=== PATIENT | male | born 1965 | race Caucasian/White ===

== ENCOUNTER 2018-09-06 15:17 | Emergency (ER) | payer BC, OTHER ==
[~2018-09-06] VITALS: Ht 180.3 cm; Wt 80.0 kg
[2018-09-06] MEDS ORDERED: CefTRIAXone 2gm/D5W 50ml 50 ML IV ONE ×2 (16:40→17:15)
[2018-09-06] MEDS ORDERED: piperacillin/tazo 3.375gm/50ml 50 ML IV ONE (16:40)
[2018-09-06] MEDS ORDERED: morphine 4 MG/ML inj SYRINge IV ONE (16:40)
[2018-09-06] MEDS ORDERED: normal saline 1000ML IV soln IV ONE (16:40)
[2018-09-06] MEDS ORDERED: ondansetron/PF 4mg/2ml inj IV ONE (16:40)
[2018-09-06] MEDS ORDERED: levoFLOXACIN-Levaquin 750MG/D5 150 ML IV STA (16:47)
[2018-09-06 17:14] LABS: BASOPHILS % (AUTO) 0.4 % (0-1); EOSINOPHILS # (AUTO) 0.1 X10'3 (0-0.9); EOSINOPHILS % (AUTO) 0.7 % (0-6); HEMATOCRIT 41.7 % (42.0-52.0); HEMOGLOBIN 14.4 g/dl (14.0-17.9); LYMPHOCYTES # (AUTO) 1.2 X10'3 (1.1-4.8); LYMPHOCYTES % (AUTO) 11.7 % (21-51); MEAN CORPUSCULAR HEMOGLOBIN 29.6 PG (27.0-31.0); MEAN CORPUSCULAR HGB CONC 34.6 g/dL (33.0-36.5); MEAN CORPUSCULAR VOLUME 85.5 FL (78-98); MEAN PLATELET VOLUME 7.4 FL (7.4-10.4); MONOCYTES # (AUTO) 1.2 X10'3 (0-0.9); MONOCYTES % (AUTO) 11.6 % (2-12); NEUTROPHILS # (AUTO) 7.7 X10'3 (1.8-7.7); NEUTROPHILS % (AUTO) 75.6 % (42-75); PLATELET COUNT 169 X10'3 (140-440); RED BLOOD COUNT 4.89 X10'6 (4.70-6.10); RED CELL DISTRIBUTION WIDTH 12.7 % (11.5-14.5); WHITE BLOOD COUNT 10.2 X10'3 (4.5-11.0)
[2018-09-06 17:27] LABS: ALANINE AMINOTRANSFERASE 41 U/L (12-78); ALBUMIN 3.3 G/DL (3.4-5.0); ALBUMIN/GLOBULIN RATIO 0.8 (1.1-1.5); ALKALINE PHOSPHATASE 55 IU/L (46-116); ANION GAP 6 (8-16); ASPARTATE AMINO TRANSFERASE 21 U/L (10-37); BILIRUBIN,TOTAL 1.3 MG/DL (0.1-1.0); BLOOD UREA NITROGEN 11 MG/DL (7-18); BUN/CREATININE RATIO 12.5 (5.4-32.0); CHLORIDE 99 MMOL/L (99-107); CREATININE 0.88 MG/DL (0.60-1.10); GLUCOSE 106 MG/DL (70-104); POTASSIUM 3.8 MMOL/L (3.5-5.1); SODIUM 133 MMOL/L (135-145); TOTAL CARBON DIOXIDE 28.1 MMOL/L (24-32); TOTAL PROTEIN 7.5 G/DL (6.4-8.2); eGFR 90 ML/MIN
[2018-09-06 17:31] LABS: CLARITY,URINE CLEAR (Clear); COLOR,URINE YELLOW (Yellow); GLUCOSE, URINE NEGATIVE (Neg); KETONES,URINE NEGATIVE (Neg); LEUKOCYTE ESTERASE ,URINE NEGATIVE (Neg); NITRITES, URINE NEGATIVE (Neg); OCCULT BLOOD,URINE TRACE-LYSED (Neg); PROTEIN,URINE NEGATIVE (Neg); UROBILINOGEN,URINE 0.2 E.U/dL (0.2-1.0)
[2018-09-06 17:33] LABS: UA COLLECTION TYPE URINAL
[2018-09-06 17:36] LABS: SQUAMOUS EPITHELIAL CELL,UR FEW /LPF (FEW)
[2018-09-06 17:37] LABS: BACTERIA,URINE FEW /HPF (Neg); WBC,URINE 0-4 /HPF (0-4)
--- NOTE | 2018-09-06 17:39 | NUR ---
pt to ct
[2018-09-06 18:11] VITALS: BP 126/76
[2018-09-06] MEDS ORDERED: NO HOME MEDS (19:16)
[2018-09-06] MEDS ORDERED: NAPR-56 PO (19:19)
[2018-09-06] MEDS ORDERED: DOXY100C43 PO (19:19)
== END 2018-09-06 19:47 | disposition home or self-care (01) ==
LOC: ER 15:17
DX: N45.1 Epididymitis (principal); R10.30 Lower abdominal pain, unspecified; Z98.890 Other specified postprocedural states; Z88.2 Allergy status to sulfonamides
CPT/HCPCS: 36415; 74176; 76870; 80053; 81001; 83605; 84145; 85025; 87040; 87491; 87591; 96365; 96375; 99284; J0696; J1956; J2270; J2405; J7030